=== PATIENT | male | born 1965 | race Caucasian/White ===

== ENCOUNTER → 2018-07-28 | Outpatient (CLI) | payer OTHER ==
--- NOTE | 2018-07-30 12:47 | PCVCIMAG ---
APPROVED REPORT Study performed: 07/28/2018 15:03:50 Exam: Stress Echocardiogram Indication: Pre-Operative CV evaluation, tobacco use, HTN, HLP Patient Location: Echo lab Stress Nurse: Elsa Watson RN Status: routine Ht: 6 ft 0 in HR: 76 bpm BP: 150/92 mmHg Rhythm: NSR Procedure The patient underwent an Exercise Stress Test using the Kvng Protocol. Blood pressure, heart rate, and EKG were monitored. An Echocardiogram was performed by hvac maintenance technician in four stages in quad fashion. At peak stress, four selected images were obtained and placed side by side with resting images for comparison. Stress Test Details Stress Test: Exercise stress testing was performed using a Kvng protocol. HR Resting HR: 76 bpmMax Heart Rate (APMHR): 166 bpm Max HR Achieved: 160 bpmTarget HR (85% APMHR): 141 bpm % of APMHR: 96 Recovery HR: 100 bpm HR response to stress: Normal HR response to stress BP Resting BP: 150/92 mmHg Max BP: 178/82 mmHg Recovery BP: 148/88 mmHg ECG Resting ECG: Sinus Rhythm Stress ECG: Sinus Rhythm, nonspecific ST-T abnormalities ST Change: Nondiagnostic ST abnormalities Arrhythmia: None Recovery ECG: Sinus Rhythm, nonspecific ST-T abnormalities Recovery ST Change: Normal Recovery Arrhythmia: None Clinical Reason for Termination: Maximal effort Stress Symptoms: Dyspnea Exercise duration: 9 min 47 sec Highest Stage Achieved: Stage 4: 4.2 mph at 16% grade. Exercise capacity: 12.6 METs Overall Exercise Capacity for Age: Good Scale: Active Angina Score: None Pre-Stress Echo The resting Echocardiogram showed normal left ventricular contractility with an estimated Ejection Fraction of about >55%. Normal wall motion in all segments on baseline images. Post-Stress Echo The stress Echocardiogram showed normal left ventricular contractility with an estimated Ejection Fraction of about 65%. Normal augmentation of wall motion in all segments on post stress images. Clinical No clinical or ECG evidence for ischemia. Conclusion Clinical Response: Non-ischemic Exercise Capacity: Average Stress ECG Response: Non-ischemic Stress Echo Images: Non-ischemic Mild concentric left ventricular hypertrophy. The left ventricle is normal in size and wall thickness in both the rest and stress images. Other Information Study Quality: Adequate <Conclusion> Mild concentric left ventricular hypertrophy. The left ventricle is normal in size and wall thickness in both the rest and stress images.
== END | disposition home or self-care (01) ==
LOC: PCVCIMAG 15:40
PROVIDERS: ATTEND Internal Medicine Cardiovascular Disease
DX: Z01.818 Encounter for other preprocedural examination (principal); I51.7 Cardiomegaly; I10 Essential (primary) hypertension; Z72.0 Tobacco use; Z82.49 Family history of ischemic heart disease and other diseases of the circulatory system
CPT/HCPCS: 93325; 93351